=== PATIENT | female | born 1950 | race Caucasian/White ===

== ENCOUNTER → 2019-03-28 | Outpatient (CLI) | payer MEDICARE, OTHER, SELFPAY ==
[2019-03-28 10:13] VITALS: BMI 39.2
== END | disposition home or self-care (01) ==
PROVIDERS: Family Provider Internal Medicine; PCP Internal Medicine; Referring Provider Nurse Practitioner Acute Care; Visit Provider Nurse Practitioner Acute Care
DX: R05 Cough (principal); J47.9 Bronchiectasis, uncomplicated
CPT/HCPCS: 87070; 87205; 94667

== ENCOUNTER 2019-04-02 15:42 | Emergency (ER) | payer MEDICARE, OTHER, SELFPAY ==
[2019-03-28 10:13] VITALS: BMI 39.2
[2019-04-02 15:44] VITALS: BP 130/86; PULSE 85; RESP 23; TEMP 36.1; O2SAT 96; BMI 55.0
--- NOTE | 2019-04-02 15:51 | EKG12_ITS ---
Test Reason : SOB Blood Pressure : / mmHG Vent. Rate : 081 BPM Atrial Rate : 081 BPM P-R Int : 150 ms QRS Dur : 092 ms QT Int : 366 ms P-R-T Axes : 049 023 022 degrees QTc Int : 425 ms Normal sinus rhythm Normal ECG Confirmed by SHAZIA PABLO ([id number]), supervising film or videotape editor RAMÓN FERNANDO ([id number] on 04/03/2019 9:47:41 AM Referred By: DRE Confirmed By:SHAZIA PABLO
--- NOTE | 2019-04-02 15:51 | RAD_ITS ---
STUDY: X-RAY CHEST REASON FOR EXAM: Female, 68 years old. Chest pain and shortness of breath TECHNIQUE: PA and lateral COMPARISON: None. FINDINGS: Less than optimal inspiratory effort is seen. Is minor discoid atelectasis or scarring in left lower lobe. There is no demonstrated pleural abnormality. Normal size heart. Normal mediastinum and dru. Normal visualized pulmonary arteries. Mildly calcified aortic arch and descending thoracic aorta. Dorsal spine demonstrates moderate spondylosis Normal visualized ribs, clavicles, and shoulders. Postsurgical change status post cholecystectomy.. RAD/Chest PA and Lateral IMPRESSION: Diminished inspiratory effort and minor left basilar atelectasis or scarring Electronically Signed: Pablo Rodriguez MD at 16:52 EDT , Service support ,
--- NOTE | 2019-04-02 15:55 | ED.DCSUM_ITS ---
- ER Visit Summary Date of Service: 04/02/19 Chief Complaint: Shortness of breath History of Present Illness: The patient is a 68 F who has been dealing with shortness of breath for the past 10 months. She recently started seeing Dr. Ashtno with pulmonology. She did have some slight abnormalities to her PFTs and is currently on an Advair HFA as well as Singulair and is supposed to be using an Acapella device per her last visit this month. She comes in today because she is more short of breath. She has had this hoarse voice for the past year as well. She woke up from sleep last night complaining of some chest tightness in the fact that she felt like she could not get any air into her lungs. She has not had any fevers. She is currently on prednisone which is raising her blood sugars which she is managing at home. Physical Examination: Vital signs reviewed. HEENT exam unremarkable. Heart is regular rate and rhythm without murmurs. Lungs are clear to auscultation. Abdomen is soft and nontender. Extremities reveal no edema. Skin exam normal. Neurologic exam normal. Test Results: CBC normal. Sodium 131, bicarb 33. Creatinine 1.3. Troponin normal. D-dimer is 1.23. EKG unremarkable. CAT scan of the chest reveals COPD with no evidence of PE or infiltrate Emergency Department Course and Treatment: At the last visit the patient had at the customer care team coach office, they talked about doing some Singulair to see if that would help with her symptoms. She states that she is willing to try anything to help with this shortness of breath is been ongoing for months. I will add the Singulair to see if this will help. She will call Dr. Ashton's office. Treatment Plan: [] Disposition: Discharge Impression: Dyspnea This note was generated with [employer] software. It may contain incorrect words, spelling, and punctuation that were not noted in review of the chart prior to signing ED Disposition - Plan for ED Patient: Referrals: Cinthia Gan, [Primary Care Provider] -
[2019-04-02 16:06] VITALS: BP 133/70; PULSE 82; RESP 21; O2SAT 94
[2019-04-02 16:33] LABS: Absolute Lymphocyte Count 0.97 X10^3/uL (0.83-4.51); Absolute Neutrophil Count 5.6 X10^3/uL (2.0-7.7); Basophil# 0.02 X10^3/uL; Basophil% 0.3 % (0-1); Eosinophil# 0.03 X10^3/uL; Eosinophils% 0.4 % (0-5); Hematocrit 39.5 % (37-47); Hemoglobin 12.5 g/dL (12.0-15.0); Lymphocyte # 0.97 X10^3/ul (4.0); Lymphocyte % 13.2 % (19-41); Mean Corp Hgb Conc 31.6 g/dL (32-36); Mean Corpuscular Hgb 29.4 pg (27.0-32.0); Mean Corpuscular Volume 92.9 fL (81-99); Mean Platelet Vol. 11.5 fl (6.2-12.0); Monocyte# 0.69 X10^3/uL; Monocyte% 9.4 % (0-10); NRBC Flagged by Analyzer 0 % (0-5); Neutrophil # 5.63 X10^3/uL (2.7-7.7); Neutrophil % 76.3 % (47-70); Platelet Count 268 K/mm3 (150-450); RBC Distribution Width CV 14.8 % (11.6-14.6); RBC Distribution Width SD 50.4 fl (35.1-43.9); Red Blood Count 4.25 M/mm3 (4.2-5.4); White Blood Count 7.4 K/mm3 (4.4-11.0)
[2019-04-02 17:05] LABS: BNP,B-Type NATRIURETIC PEPTIDE 76.1 pg/mL (0-100)
[2019-04-02 17:15] LABS: D-Dimer Quantitative (DVT/PE) 1.23 FEU/ug/m (0.27-0.49)
[2019-04-02 17:16] VITALS: PULSE 73; RESP 26; O2SAT 94
--- NOTE | 2019-04-02 17:16 | CT_ITS ---
STUDY: CTA CHEST REASON FOR EXAM: Female, 68 years old. Short of breath RADIATION DOSAGE (If Supplied By Facility): CTDIvol = ( 21.43 ) mGy, DLP = ( 669.80 ) mGycm TECHNIQUE: The examination was performed with the intravenous administration of 100CC IV Isovue 370. Post-processing of the angiographic images was performed, with multiplanar reformation and 3D reconstruction. Individualized dose optimization techniques were used for this CT. COMPARISON: None. FINDINGS: Normal enhancement of the main pulmonary artery and right and left pulmonary arteries. Normal enhancement of the bilateral peripheral pulmonary arteries. There is no demonstrated pulmonary embolism. Mild atherosclerotic changes of the aorta without evidence for aneurysm.. There is no demonstrated aortic dissection. Heart is normal size. There is mild coronary artery calcification Normal mediastinum. Normal hilar regions. Normal visualized trachea and bronchi. The lungs are well expanded. Mild chronic interstitial and some is changes. No focal infiltration or pulmonary nodule Normal pleura. Normal chest wall structures. Dorsal spine demonstrates advanced spondylosis. Gallbladder has been removed surgically CT/CTA Chest W/WO Contrast IMPRESSION: Mild COPD and superimposed ASHD. No evidence for acute infiltration or pulmonary embolus Electronically Signed: Pablo Rodriguez MD at 17:58 EDT , Service support ,
--- NOTE | 2019-04-02 17:16 | ED.RN ---
DR. HELMS INFORMED OF D-DIMER 1.23.
[2019-04-02 17:23] LABS: Anion Gap 5 (5-15); BUN 18 mg/dL (7-18); BUN/Creat Ratio 13.8 RATIO (10-20); Calcium,Total 9.5 mg/dL (8.5-10.1); Chloride 93 mmol/L (98-107); EST Glomerular Filtration Rate 43 mL/min (>60); Est Glom Filt Rate - Afr Amer 52 mL/min (>60); Estimated Creatinine Clearance 37.79 ml/min; Glucose 110 mg/dL (74-106); Potassium 4.5 mmol/L (3.5-5.1); Sodium Level 131 mmol/L (136-145)
--- NOTE | 2019-04-02 18:10 | ED.DEP ---
ED Disposition - Plan for ED Patient: Disposition: Home or Assisted Living Instructions: ED Dyspnea Prescriptions: Montelukast [Singulair] 10 mg PO DAILY #14 tab Prescription Printed Referrals: Cinthia Gan DO [Primary Care Provider] -
[2019-04-02 18:29] VITALS: BP 139/82; PULSE 89; RESP 21; O2SAT 93; O2SAT 94
== END 2019-04-02 18:30 | disposition home or self-care (01) ==
PROVIDERS: Emergency Provider Emergency Medicine; Family Provider Internal Medicine; PCP Internal Medicine
DX: R06.00 Dyspnea, unspecified (principal); I11.0 Hypertensive heart disease with heart failure; I50.9 Heart failure, unspecified; J44.9 Chronic obstructive pulmonary disease, unspecified; K21.9 Gastro-esophageal reflux disease without esophagitis; E11.9 Type 2 diabetes mellitus without complications; Z79.4 Long term (current) use of insulin; Z79.84 Long term (current) use of oral hypoglycemic drugs; Z79.899 Other long term (current) drug therapy
CPT/HCPCS: 71046; 71275; 80048; 83880; 84484; 85025; 85379; 93005; 99284; Q9967; A4216

== ENCOUNTER 2022-07-11 12:52 | Outpatient (RCR) | payer MEDICARE, SELFPAY | END 2022-08-09 23:59 | LOC: DC 12:52 | PROVIDERS: PCP Internal Medicine; Visit Provider Internal Medicine | DX: I13.0 Hypertensive heart and chronic kidney disease with heart failure and stage 1 through stage 4 chronic kidney disease, or unspecified chronic kidney disease (principal); E11.22 Type 2 diabetes mellitus with diabetic chronic kidney disease; N18.9 Chronic kidney disease, unspecified; I50.9 Heart failure, unspecified | CPT/HCPCS: 97802 ==